=== PATIENT | male | born 1935 | race Caucasian/White ===

== ENCOUNTER 2016-08-11 09:09 | Emergency (ER) | payer OTHER ==
[~2016-08-11] VITALS: Ht 185.4 cm; Wt 90.0 kg
[~2016-08-11 09:09] MED LIST: ASPI1TAB7 PO; DENT1.1G; FINA5TAB77 PO; LANTUS2P SQ; METO5TAB46 PO; OMEP20TA PO; PSYL1POW7 PO; SIMV40 PO; VITA-13 PO
[2016-08-11 09:25] VITALS: BP 143/76; PULSE 76; RESP 16; TEMP 98.5; O2SAT 95
--- NOTE | 2016-08-11 09:45 | PD ---
HPI Chief Complaint: Back/ Neck Pain or Injury Time Seen by Provider: 09:33 Travel History International Travel<30 days: No Contact w/Intl Traveler<30days: No Traveled to known affect area: No History of Present Illness HPI This is an 81-year-old male who presents to the emergency department with 2 weeks of lower back pain. The patient reports that 2 weeks ago he sat down wrong in a chair and had severe back pain on the right side radiating into his leg. After some days it resolved but then over the weekend he stated in a hotel in the toilet was quite low and the pain occurred when he was trying to sit up. Since then it's an intermittent, worse with walking, improved with rest and laying flat, with no associated numbness or weakness. He denies any bowel or urinary incontinence. He has not taken anything for the pain. PFSH Past Medical History Cardiac Catheterization: Yes Cardiovascular Problems: Yes (CABG X 3 VESSEL) Congestive Heart Failure: Yes Coronary Artery Disease: Yes Diabetes: Yes Diminished Hearing: No Immunizations Current: Yes Renal Failure: Yes (stage 3) Past Surgical History Appendectomy: Yes Coronary Artery Bypass Graft: Yes (x3) Eye Surgery: Yes (bilat cataract removal) Tonsillectomy: Yes Social History Alcohol Use: No Tobacco Use: No Substance Use: No Allergies-Medications (Allergen,Severity, Reaction): Coded Allergies: Coreg (Unverified Allergy, Severe, Anaphylaxis, 08/11/16) Reported Meds & Prescriptions Reported Meds & Active Scripts Active Reported [tenzimum] 30 SQ WEEKLY Proscar (Finasteride) 5 Mg Tab 5 Mg PO DAILY Do not crush. Zocor (Simvastatin) 20 Mg Tab 20 Mg PO DAILY Omeprazole 20 Mg Tab 20 Mg PO DAILY Lasix (Furosemide) 20 Mg Tab 20 Mg PO BID Lantus Solostar Pen Inj (Insulin Glargine) 300 Unit/3 Ml Pen 40 Units SQ DAILY@ 0600 Aspir-Low (Aspirin) 81 Mg Tabdr 1 Tab PO DAILY Review of Systems Except as stated in HPI: all other systems reviewed are Neg Physical Exam Narrative GENERAL:Well appearing, no acute distress SKIN: Warm and dry. HEAD: Atraumatic. Normocephalic. EYES: Pupils equal and round. No injection or drainage. ENT: Moist mucous membranes NECK: Trachea midline. CARDIOVASCULAR: Regular rate and rhythm. No murmur appreciated. RESPIRATORY: Clear to auscultation. Breath sounds equal bilaterally. GASTROINTESTINAL: Abdomen soft, non-tender, nondistended. MUSCULOSKELETAL: Tender to palpation over the lower lumbar vertebrae with tenderness along the sacroiliac joint on the right NEUROLOGICAL: Awake and alert. No obvious cranial nerve deficits. 5 out of 5 strength in the bilateral lower extremities with sensation grossly intact. PSYCHIATRIC: Appropriate mood and affect; insight and judgment normal. Data Data Last Documented VS Vital Signs Date Time Temp Pulse Resp B/P Pulse Ox O2 Delivery O2 Flow Rate FiO2 08/11/16 10:02 16 08/11/16 09:25 98.5 76 143/[address] Lumb Spine W/O Contrast (08/11/16 ) MDM Medical Decision Making Medical Screen Exam Complete: Yes Emergency Medical Condition: Yes Interpretation(s) Afebrile, no tachycardia, hypertensive CT: Broad-based disc bulge at L5-S1 with no nerve root impingement Differential Diagnosis Compression fracture, herniated disc, cauda equina syndrome, cancer Narrative Course This is an 81-year-old male who presents to the emergency department with low back pain that's been present intermittently for 2 weeks. He has a sciatic component on the right side. CT was obtained which is negative for malignancy or compression fracture. Patient will be treated with tramadol and can follow- up as an outpatient Diagnosis Primary Impression: Sciatica associated with disorder of lumbar spine Patient Instructions: General Instructions Additional Instructions: If you develop weakness of your legs, difficulty walking, numbness of her legs or your genital or rectal area, loss of your bowel or bladder, or difficulty urinating return to the emergency department immediately. Followup with your primary care physician in one week if your symptoms have not improved. Med/Other Pt SpecificInfo: Prescription(s) given Scripts Sennosides-Docusate Sodium (Senna-Docusate Sodium)8.6-50 Mg Tab2 Tab PO DAILY # 30 TAB Ref 0 Prov:Karol Kulkarni MD 08/11/16 Tramadol 50 Mg Tab50 Mg PO Q6H PRN (PAIN) #15 TAB Prov:Karol Kulkarni MD 08/11/16 Disposition: 01 DISCHARGE HOME Condition: Stable Karol Kulkarni MD Aug 11, 2016 09:44
[2016-08-11] MEDS ORDERED: OMEP20TA PO (10:13)
[2016-08-11] MEDS ORDERED: FURO1TAB62 PO (10:13)
[2016-08-11] MEDS ORDERED: LANTINJ SQ (10:13)
[2016-08-11] MEDS ORDERED: ZOCO20TA PO (10:13)
[2016-08-11] MEDS ORDERED: PROS5TAB PO (10:13)
[2016-08-11] MEDS ORDERED: ASPI81TA19 PO (10:13)
[2016-08-11] MEDS ORDERED: [UNRECOGNIZED DRUG - OTHER] SQ (10:16)
--- NOTE | 2016-08-11 10:25 | RADHPO ---
EXAM DATE/TIME: 08/11/2016 09:49 [facility] COMPARISON: No previous studies available for comparison. INDICATIONS: Radiculopathy, back pain. RADIATION DOSE: 40.10 CTDIvol (mGy) MEDICAL HISTORY: Cardiovascular disease. Hypertension. SURGICAL HISTORY: CABG Appendectomy. ENCOUNTER: Initial ACUITY: 2 weeks PAIN SCALE: 4/10 LOCATION: Lumbar TECHNIQUE: Volumetric scanning of the lumbar spine was performed. Multiplanar reconstructions in the sagittal, coronal and oblique axial planes were performed. Using automated exposure control and adjustment of the mA and/or kV according to patient size, radiation dose was kept as low as reasonably achievable t o obtain optimal diagnostic quality images. FINDINGS: CT scan lumbar spine demonstrates there is some disc degenerative sclerosis anteriorly at the T12-L1 level. No end plate fractures identified. There is overall excellent alignment without spondylolist hesis. Soft tissue windows showed no disc herniation or protrusion. Nerve root exit without difficu lty. Minimal bulge at L5-S1 without significant thecal sac or nerve root compromise. CONCLUSION: Broad base bulge at L5-S1 slightly flattening the thecal sac but does not displace any of the nerve r oots. The rest of the lumbar spine is unremarkable without evidence of fracture. Power Cleary MD on August 11, 2016 at 10:18 Board Certified Radiologist. This report was verified electronically.
[2016-08-11] MEDS ORDERED: SENN1TAB2 PO (10:35)
[2016-08-11] MEDS ORDERED: TRAM50TA PO (10:35)
== END 2016-08-11 11:18 | disposition home or self-care (01) ==
LOC: PHED 09:09
DX: M54.41 Lumbago with sciatica, right side (principal); M53.9 Dorsopathy, unspecified; E11.9 Type 2 diabetes mellitus without complications; N18.3 Chronic kidney disease, stage 3 (moderate); Z79.4 Long term (current) use of insulin; Z86.79 Personal history of other diseases of the circulatory system
CPT/HCPCS: 72131